=== PATIENT | female | born 1965 | race Caucasian/White ===

== ENCOUNTER 2016-07-29 23:36 | Observation (INO) | payer SELFPAY ==
--- NOTE | ~2016-07-29 | HP ---
History And Physical [id number] [place]. [address] NAME: CAN LOZANO : 63 STATUS : ADM Carmelita PAT#: [id number] AGE: 51 ADM/REG DATE : 07/30/16 MR#: [id number] REPORT SERV DATE: 07/30/16 DICTATED BY: GIOVANNA BAI DATE: 07/30/16 REPORT STATUS : Draft TRANSCRIBED BY: MODL DATE: 07/30/16 DATE OF ADMISSION: 07/30/2016 ENDORSEMENT CLERK: Dr. Celia Cade at [facility]. CHIEF COMPLAINT: Chest pain. HISTORY OF PRESENT ILLNESS: A very pleasant 51-year-old white female with a diagnosis of rheumatic heart disease and aortic stenosis, followed by Dr. Cade at [facility], last seen 03/2016 with scheduled outpatient testing, but unfortunately not completed due to the patient's unavailability. The patient states that she had a substernal chest pain occurring on 07/29/2016 around 2000 hours while at rest, indicating her mid chest, radiating through to her back and radiating up into her left neck. She describes it as "a suffocating tightness." She reports associated shortness of breath, nausea, diaphoresis, and dizziness. Denies any belching. She reports this as a solitary event. At its most intense, her chest pain was rated an 8/10. At the time of interview in the CPOU, she is pain-free. She states the episode lasted in intensity 1 to 2 minutes. She did take aspirin prior to calling EMS. EMS provided full-dose aspirin and two nitroglycerin sublingual with improvement in her symptoms. The patient denies any personal history of myocardial infarction, DVT, or pulmonary embolus. She does report having had a stroke secondary to migraine with no residual deficit. The patient denies any recent fever or chills. Describes occasional palpitations. Consumes four Diet Cokes per day. No syncopal episodes. Denies PND or orthopnea. Of note, the patient has been unable to check her blood sugar for approximately two to three months. She left an uncomfortable situation in [place], [place], and has not gone back to get her glucometer and states that it is a situation bad enough that she does not feel comfortable going back. No further details were offered. We will ask visual educator to supply glucometer and appropriate supplies. PAST MEDICAL HISTORY: 1. Rheumatic heart disease. 2. Aortic stenosis with regurgitation. 3. Hypertension. 4. Dyslipidemia. 5. AODM. 6. Anxiety. 7. Tobacco abuse. 8. Reports history of stroke secondary to migraine with no residual deficit. 9. Positive family history for early CAD. PAST SURGICAL HISTORY: Hysterectomy. SOCIAL HISTORY: She is with two children. She is unemployed. She walks daily, approximately two miles, last most recently three days ago without incident. Smokes one History And Physical [address] [id number] NAME: CAN LOZANO : 63 STATUS : ADM Carmelita PAT#: [id number] AGE: 51 ADM/REG DATE : 07/30/16 MR#: [id number] REPORT SERV DATE: 07/30/16 DICTATED BY: GIOVANNA BAI DATE: 07/30/16 REPORT STATUS : Draft TRANSCRIBED BY: NAM DATE: 07/30/16 pack over four days, has smoked as much as one and a half packs per day for the past 30 years. Denies alcohol or illicits. FAMILY HISTORY: Mother with heart attack in her 40s, of cancer at 63. Sister with a stroke at 5 years of age, remains alive at 54. Father with CAD and stents at 70, remains alive at 77. REVIEW OF SYSTEMS: A 14-point review of systems performed, significant for HPI. No other contributory diagnoses identified. ALLERGIES: VANCOMYCIN, CARDIAC ARREST. HOME MEDICINES: Amlodipine 10 mg daily, aspirin 162 mg daily, carvedilol 12.5 mg twice daily, Glucotrol 5 mg daily, hydrochlorothiazide 12.5 mg daily, Advil p.r.n., metformin 500 mg twice daily, trazodone 50 mg nightly, and BuSpar unknown dose daily. PHYSICAL EXAMINATION: VITAL SIGNS: Bilateral blood pressures on arrival; right 135/62, left 141/57; pulse 67, respirations 18, temperature 98.2, and O2 saturation 93% on room air. Height 5 feet 3 inches, weight 151 pounds, and BMI 26.7. GENERAL: Cooperative, in no apparent distress. HEENT: Pupils 2 mm, sclera nonicteric. Nares patent. Moist mucous membranes. No xanthelasma. NECK: Trachea midline, no thyromegaly. No JVD. No bruits. LYMPH: No cervical lymphadenopathy. No supraclavicular lymphadenopathy. RESPIRATORY: Unlabored respirations. Breath sounds clear bilaterally to posterior auscultation. No wheezes or rhonchi. CARDIOVASCULAR: A 3/6 murmur, best audible at the right sternal border at base, radiates to carotids, right greater than left. ABDOMEN: Soft, nontender, nondistended, normal bowel sounds auscultated throughout. No organomegaly. SKIN: Warm, dry extremities. No pallor, or cyanosis. PSYCHIATRIC: Appropriate affect. Alert, oriented x3. LABORATORY DATA: 1. Troponin less than 0.02 twice. Potassium 3.9, BUN 16, creatinine 0.79, and glucose 319. Magnesium 2.4. WBC 11.3, hemoglobin 14.8, hematocrit 42.2, and platelet count 253,000. EKG: Sinus rhythm with lateral T-waves. 2. Echo, 03/2015: EF 65%. No regional wall motion abnormality identified. Normal RV size and systolic function. Mild concentric LVH. Moderate aortic valve stenosis with peak velocity of 3.6 m/s and mean pressure gradient of 23 mmHg. Moderate aortic valve regurgitation with eccentric jet also present illness when compared to previous study of 2011. Gradient across aortic valve increased and regurgitation is more severe. 3. MPI, 11/2011: No ischemia. ASSESSMENT AND PLAN: 1. Substernal chest pain in a patient with multiple risk factors. The patient has been History And Physical [address] [address] NAME: CAN LOZANO : 63 STATUS : ADM Carmelita PAT#: [id number] AGE: 51 ADM/REG DATE : 07/30/16 MR#: [id number] REPORT SERV DATE: 07/30/16 DICTATED BY: GIOVANNA BAI DATE: 07/30/16 REPORT STATUS : Draft TRANSCRIBED BY: NAM DATE: 07/30/16 observed in the CPOU overnight to rule out myocardial infarction with serial enzymes and serial EKGs, all stable and held n.p.o. We will proceed with MPI today. The patient will be discharged home if low risk, no ischemia. If anything suggestive of ischemia, Cardiology referral will be initiated. Otherwise, the patient will be asked to follow up with her PCP and [facility] as appropriate. 2. Aortic stenosis, most recently evaluated in 07/2015. Recheck an echo and bilateral carotid ultrasound (radiation versus bruit) request records from [facility], most recent echo for comparison of 2016. 3. Hypertension. Monitor blood pressure. Continue home medications. Hold calcium channel ann-marie and beta ann-marie until stress test is complete. 4. Dyslipidemia. Continue statin. 5. Adult-onset diabetes mellitus. Admitting blood sugar 300plus. We will check a hemoglobin A1c. If no glucometer available, educator to see and provide appropriate supplies. Follow up with PCP. 6. Tobacco abuse. Counseled regarding cessation. 7. Caffeine indiscretion. Counseled regarding reduction or abstinence. Water for hydration. INA/MODL ARCELIA Valle, COAL EQUIPMENT OPERATOR-BC / [id number] CC: Giovanna Bai, MSN, COAL EQUIPMENT OPERATOR-BC Perez Benitez M.D.
[~2016-07-29 23:36] MED LIST: COREG6 PO; GLIPIZIDE; GLUCOTROL5 PO; GLUCPH PO; HYDROCHLOROT12.5 MG PO; LIPITOR10 PO; LISINOPRIL40 MG PO; TRAZ50 PO; VIBRATAB100 MG PO
[2016-07-29 23:38] LABS: BASOPHILS 0.4 %; BASOPHILS ABSOLUTE 0.04 10/3/uL (0.0-0.16); EOSINOPHILS 3.3 %; EOSINOPHILS ABSOLUTE 0.37 10/3/uL (0.0-0.53); HEMOGLOBIN 14.8 g/dL (12.0-16.0); IMMATURE GRANULOCYTES 0.4 %; IMMATURE GRANULOCYTES ABSOLUTE 0.05 10/3/uL (0.0-0.11); LYMPHOCYTES ABSOLUTE 4.17 10/3/uL (0.67-4.30); MEAN CORPUS HGB CONC 35.1 g/dL (32.0-36.0); MEAN CORPUSCULAR HEMOGLOB 30.1 pg (26.0-34.0); MEAN PLATELET VOLUME 9.9 fL (9.2-13.0); MONOCYTES 4.7 %; MONOCYTES ABSOLUTE 0.53 10/3/uL (0.21-1.20); NEUTROPHILS 54.2 %; NEUTROPHILS ABSOLUTE 6.11 10/3/uL (2.02-8.40); PLATELET COUNT 253 10/3/uL (150-400); RED CELL COUNT 4.91 10/6/uL (4.0-5.6); WHITE BLOOD CELLS 11.3 10/3/uL (4.5-10.5)
[2016-07-29 23:39] LABS: HEMATOCRIT 42.2 % (36.0-48.0); MANUAL DIFF NO %; MEAN CORPUSCULAR VOLUME 85.9 fL (80-100)
[2016-07-29] MEDS ORDERED: COREG12 PO (23:42)
[2016-07-29] MEDS ORDERED: GLUCPH PO (23:42)
[2016-07-29] MEDS ORDERED: GLUCOTROL5 PO (23:42)
[2016-07-29] MEDS ORDERED: HYDROCHLOROT12.5 MG PO (23:42)
[2016-07-29] MEDS ORDERED: NORV10 PO (23:43)
[2016-07-29] MEDS ORDERED: TRAZ50 PO (23:43)
[2016-07-29] MEDS ORDERED: ADVIL PO (23:43)
[2016-07-29] MEDS ORDERED: ASAB PO (23:43)
[2016-07-29] MEDS ORDERED: ATV1 PO (23:43)
[2016-07-29 23:44] LABS: INTERNATIONAL NORMAL RATI 0.9 UNITS (-); PARTIAL THROMBO TIME 30.9 SEC (22.5-37.2); PROTIME (NOT ORD) 12.3 SEC (12.0-14.5)
[2016-07-29 23:53] LABS: BUN (BLOOD UREA NITROGEN) 16 MG/DL (6-23); CALCIUM, SERUM 9.2 MG/DL (8.5-10.4); CHEST PAIN PROFILE TAT 0 Hrs 21 Mins; CHLORIDE, SERUM 101 MMOL/L (96-112); CREATININE 0.79 MG/DL (0.55-1.02); GFR AFRICAN AMERICAN 100 ML/MIN (>=60); GFR NON AFRICAN AMERICAN 86 ML/MIN (>=60); GLUCOSE, SERUM 319 MG/DL (60-99); SODIUM, SERUM 136 MMOL/L (135-148); TROPONIN I <0.02 NG/ML (<0.05)
[2016-07-29 23:54] LABS: CO2 (CARBON DIOXIDE) 29 MMOL/L (24-34); POTASSIUM, SERUM 3.9 MMOL/L (3.5-5.3)
[2016-07-30 10:24] LABS: HEMATOCRIT 41.2 % (36.0-48.0); HEMOGLOBIN 14.6 g/dL (12.0-16.0)
== END 2016-07-30 17:52 | disposition home or self-care (01) ==
LOC: ER 23:36 → CDU1 07-30 02:16 → CDU2 07-30 02:38
PROVIDERS: Clinical Nurse Specialist; Emergency Medicine
DX: R07.2 Precordial pain (principal); I35.0 Nonrheumatic aortic (valve) stenosis; I10 Essential (primary) hypertension; E78.5 Hyperlipidemia, unspecified; E11.9 Type 2 diabetes mellitus without complications; F17.210 Nicotine dependence, cigarettes, uncomplicated; I09.9 Rheumatic heart disease, unspecified; F41.9 Anxiety disorder, unspecified; G43.909 Migraine, unspecified, not intractable, without status migrainosus; Z90.710 Acquired absence of both cervix and uterus; Z86.73 Personal history of transient ischemic attack (TIA), and cerebral infarction without residual deficits; Z88.1 Allergy status to other antibiotic agents; Z79.899 Other long term (current) drug therapy
CPT/HCPCS: 71010; 78452; 80048; 82962; 83036; 83735; 84484; 85014; 85018; 85025; 85610; 85730; 93005; 93017; 93306; 93880; 96374; 99285; A9270-GY; A9502; G0378; J0153